=== PATIENT | male | born 1980 | race Asian ===

== ENCOUNTER 2017-02-14 00:27 | Emergency (ER) | payer MEDICAID ==
[~2017-02-14] VITALS: Ht 170.2 cm; Wt 82.0 kg
[2017-02-14 00:37] VITALS: Ht 170.2 cm; Wt 82.0 kg
[2017-02-14] MEDS ORDERED: KETOROLAC 60 MG INJ IM STA (02:04)
[2017-02-14 02:37] LABS: URINE BLOOD (Dip) POC 2+ (NEGATIVE)
--- NOTE | 2017-02-14 02:59 | RADRPT ---
PROCEDURE: X-ray right ribs CLINICAL INDICATION: Right rib pain, otherwise nonspecific. TECHNIQUE: 2 views right ribs COMPARISON: None FINDINGS: No acute fracture or dislocation. No evident pneumothorax. IMPRESSION: No acute fracture. RPTAT: [facility] Physician Amy Date Time Electronically viewed and signed by Mulugeta Wynne Physician on 02/14/2017 02:59 RS/
[2017-02-14] MEDS ORDERED: IBUP800T25 PO (03:10)
[2017-02-14] MEDS ORDERED: ALBU18HF INHALATION (03:32)
[2017-02-14 04:23] VITALS: BP 132/76; PULSE 56; RESP 16; TEMP 97.8
--- NOTE | 2017-02-14 06:45 | ERD ---
ER Documentation Chief Complaint Date/Time DATE: 02/14/17 TIME: 06:40 Chief Complaint C/O RT SIDED CHEST PAIN, RT BACK PAIN AND DIZZINESS SINCE 1999 HPI 36-year-old male complaining of right-sided chest pain since 8 PM yesterday evening. Patient states that he ate burgers for dinner, shortly after he had sudden onset of sharp, burning knifelike pain in the right side of the chest. The pain radiates to the right back. He is intermittent, worse with movement. Laying down flat makes pain better, sitting up straight or standing makes the pain worse. He had one episode of vomiting. Denies fever or chills. Denies shortness of breath. ROS All systems reviewed and are negative except as per history of present illness. Medications Home Meds Active Scripts Albuterol Sulfate* (Ventolin HFA*) 18 Gm Hfa.aer.ad, 2 PUFF INHALATION Q4H, #1 INHALER Prov:BELA SMITH. BEHAVIORAL HEALTH WORKER 02/14/17 Ibuprofen* (Motrin*) 800 Mg Tab, 800 MG PO Q6H Y for PAIN AND OR ELEVATED TEMP, #30 TAB Prov:BELA SMITH. BEHAVIORAL HEALTH WORKER 02/14/17 PMhx/Soc History of Surgery: No Anesthesia Reaction: No Hx Neurological Disorder: No Hx Respiratory Disorders: Yes (ASTHMA ) Hx Cardiac Disorders: No Hx Psychiatric Problems: No Hx Miscellaneous Medical Probl: No Hx Alcohol Use: No Hx Substance Use: No Hx Tobacco Use: Yes Smoking Status: Current every day smoker Physical Exam Vitals Vital Signs Date Time Temp Pulse Resp B/P Pulse Ox O2 Delivery O2 Flow Rate FiO2 02/14/17 04:23 97.8 56 16 132/76 97 Room Air 02/14/17 00:37 98.5 74 17 141/74 96 Physical Exam General impression: Well-developed, well-nourished. Alert, oriented, in no acute distress Head: Normocephalic, atraumatic. Eyes: PERRL, EOM normal. Sclerae are normal. Conjunctiva not injected. Neck: Supple, nontender. No lymphadenopathy. No nuchal rigidity. Respiration: Normal respiratory effort. Lungs clear to auscultate bilaterally. No wheezes, rales or rhonchi. Cardiovascular: Regular rate and rhythm. No murmurs or extra heart sounds. No friction rub. Right chest wall tender to palpation. Abdomen: Abdomen normal to inspection. Nontender. No masses or organomegaly. Bowel sounds normal. Back: Normal to inspection. No midline spine tenderness. No CVA tenderness. Extremities: Extremities normal to inspection, nontender. ROM normal. Neuro: Mental status normal, speech normal. [place] MATE grossly intact. Skin: Normal turgor. No rash or lesions. Psych: Normal mood and affect. Results 24 hrs Laboratory Tests Test 02/14/17 02:37 Bedside Urine pH (LAB) 5.5 Bedside Urine Protein (LAB) 3+ Bedside Urine Glucose (UA) Negative Bedside Urine Ketones (LAB) Negative Bedside Urine Blood 2+ Bedside Urine Nitrite (LAB) Negative Bedside Urine Leukocyte Esterase (L Negative Current Medications Medications (Trade) Dose Ordered Sig/Aide Route PRN Reason Start Time Stop Time Status Last Admin Dose Admin Ketorolac Tromethamine (Toradol) 60 mg ONCE STAT IM 02/14/17 02:04 02/14/17 02:06 DC 02/14/17 02:26 Procedures/MDM Well-appearing 36-year-old male complaining of right-sided chest pain 1 day. EKG: Normal sinus rhythm at 63 bpm, 1 PVC noted. Normal axis. No ST segment elevation or depression. No QT prolongation. X-ray of the right ribs was obtained, x-ray negative for fractures or dislocations. No sign of pneumonia or pneumothorax, no sign of enlarged aorta. I doubt PE or pericarditis. I suspect his pain is due to muscle strain. Patient appears well, stable for discharge and outpatient management. Medical decision making shared with patient and family. Education provided to patient and family. Patient and family expressed understanding of the plan. Medications on discharge: Ibuprofen. Follow-up: Primary care provider in 2-3 days or return to ED if worse. Departure Diagnosis: Primary Impression: Chest wall muscle strain Encounter type: initial encounter Qualified Code: S29.011A - Chest wall muscle strain, initial encounter Condition: Good Patient Instructions: Chest Wall Strain Referrals: [facility] YOU HAVE RECEIVED A MEDICAL SCREENING EXAM AND THE RESULTS INDICATE THAT YOU DO NOT HAVE A CONDITION THAT REQUIRES URGENT TREATMENT IN THE EMERGENCY DEPARTMENT. FURTHER EVALUATION AND TREATMENT OF YOUR CONDITION CAN WAIT UNTIL YOU ARE SEEN IN YOUR DOCTORS OFFICE WITHIN THE NEXT 1-2 DAYS. IT IS YOUR RESPONSIBILITY TO MAKE AN APPOINTMENT FOR FOLOW-UP CARE. IF YOU HAVE A PRIMARY DOCTOR --you should call your primary doctor and schedule an appointment IF YOU DO NOT HAVE A PRIMARY DOCTOR YOU CAN CALL OUR PHYSICIAN REFERRAL HOTLINE AT IF YOU CAN NOT AFFORD TO SEE A PHYSICIAN YOU CAN CHOSE FROM THE FOLLOWING [facility] [address] [facility] [address] [address] [facility] [address] [facility] [facility] [address] [facility]. [facility]. [address] Additional Instructions: Call your primary care doctor TOMORROW for an appointment during the next 1 WEEK.Tell the stenographer secretary that you were referred from this facility.See the doctor sooner or return here if your condition worsens before your appointment time. BELA SMITH NP Feb 14, 2017 06:45
== END 2017-02-14 04:23 | disposition home or self-care (01) ==
LOC: FTE 00:27
DX: S29.011A Strain of muscle and tendon of front wall of thorax, initial encounter (principal); J45.909 Unspecified asthma, uncomplicated; F17.210 Nicotine dependence, cigarettes, uncomplicated; R07.9 Chest pain, unspecified; X58.XXXA Exposure to other specified factors, initial encounter; Y92.9 Unspecified place or not applicable
CPT/HCPCS: 71100; 81003; 93005; 96372; J1885; Z7502

== ENCOUNTER 2017-06-09 22:22 | Emergency (ER) | payer MEDICAID ==
[~2017-06-09] VITALS: Ht 167.6 cm; Wt 81.0 kg
[~2017-06-09 22:22] MED LIST: ALBU18HF INHALATION; IBUP800T25 PO
[2017-06-09 22:28] VITALS: Ht 167.6 cm; Wt 81.0 kg
[2017-06-10] MEDS ORDERED: IBUPROFEN 600 MG TAB PO ONE
[2017-06-10] MEDS ORDERED: ACETAMINOPHEN 325 MG TAB PO ONE
[2017-06-10] MEDS ORDERED: ONDANSETRON 4 MG INJ IV STA (00:12)
[2017-06-10] MEDS ORDERED: SOD CHLORIDE 0.9% 1,000 ML IV ONE (00:30)
[2017-06-10] MEDS ORDERED: DIAZEPAM 5 MG/ML SYG IV ONE (00:30)
[2017-06-10] MEDS ORDERED: morphine 2 MG INJ IV ONE (00:30)
--- NOTE | 2017-06-10 00:46 | ERD ---
ER Documentation Chief Complaint Date/Time DATE: 06/10/17 TIME: 00:43 Chief Complaint sp spider bite right knee, small rash, cough x 5 days, headache HPI 36-year-old male presents here in emergency department for multiple complaints. Patient is complaining of multiple insect bites and lower extremities, is worried about an prior bite. Patient started to have cramps all over the body that started this afternoon, it is on and off. Describes the pain as cramping pain, 8/10 scale, not better or worse with anything. Patient also has been having cough for 5 days. Patient has been having dry cough, does not cough any phlegm or blood. Patient denies shortness breath or wheezing. Patient has been having fever on-and-off. Patient does not have any sore throat or ear pain. Patient did not take any medications to help with symptoms. ROS All systems reviewed and are negative except as per history of present illness. Medications Home Meds Active Scripts Albuterol Sulfate* (Proair HFA*) 8.5 Gm Hfa.aer.ad, 2 PUFF INH Q4H Y for WHEEZING AND SOB, #1 INHALER Prov:LÓPEZ JACOBSON NP 06/10/17 Azithromycin* (Zithromax*) 250 Mg Tablet, 250 MG PO .ZPACK DIRECTED, #6 TAB TAKE 500 MG (2 TABS) THE FIRST DAY THEN 250 MG (1 TAB) DAYS 2-5 Prov:LÓPEZ JACOBSON NP 06/10/17 Cetirizine Hcl* (Zyrtec*) 10 Mg Capsule, 10 MG PO DAILY, #30 TAB.CHEW Prov:LÓPEZ JACOBSON NP 06/10/17 Ibuprofen* (Motrin*) 600 Mg Tab, 600 MG PO Q6H Y for PAIN AND OR ELEVATED TEMP, #30 TAB Prov:LÓPEZ JACOBSON NP 06/10/17 Cjrimlolrzu-A-Vnkhvozcqc Hb* (Guaifenesin* DM Syrup) 120 Ml Syrup, 10 ML PO Q4H Y for COUGH, #120 ML Prov:LÓPEZ JACOBSON NP 06/10/17 Diazepam* (Valium*) 5 Mg Tablet, 5 MG PO Q8 Y for MUSCLE SPASMS, #15 TAB Prov:LÓPEZ JACOBSON MICHEL BertoCaden CLERICAL ADJUDICATOR 06/10/17 Tramadol HCl (Tramadol HCl) 50 Mg Tablet, 50 MG PO Q6, #20 TAB Prov:LÓPEZ JACOBSONCdaen CLERICAL ADJUDICATOR 06/10/17 Albuterol Sulfate* (Ventolin HFA*) 18 Gm Hfa.aer.ad, 2 PUFF INHALATION Q4H, #1 INHALER Prov:BELA SMITH. CLERICAL ADJUDICATOR 02/14/17 Ibuprofen* (Motrin*) 800 Mg Tab, 800 MG PO Q6H Y for PAIN AND OR ELEVATED TEMP, #30 TAB Prov:BELA SMITH. CLERICAL ADJUDICATOR 02/14/17 Allergies Allergies: Coded Allergies: codeine (Verified Allergy, Unknown, 06/09/17) PMhx/Soc Medical and Surgical Hx: pt denies Surgical Hx History of Surgery: No Anesthesia Reaction: No Hx Neurological Disorder: No Hx Respiratory Disorders: Yes (ASTHMA ) Hx Cardiac Disorders: No Hx Psychiatric Problems: No Hx Miscellaneous Medical Probl: No Hx Substance Use: Yes (Marijuana) Hx Tobacco Use: Yes (1 pack a day) Smoking Status: Current every day smoker FmHx Family History: No coronary disease, No diabetes, No other Physical Exam Vitals Vital Signs Date Time Temp Pulse Resp B/P Pulse Ox O2 Delivery O2 Flow Rate FiO2 06/10/17 05:45 65 06/09/17 22:28 101.3 117 20 128/90 96 Physical Exam GENERAL: The patient is well developed and appropriate for usual state of health, in no apparent distress. CHEST: Clear to auscultation bilaterally. There are no rales, wheezes or rhonchi. HEART: Regular rate and rhythm. No murmurs, clicks, rubs or gallops. No S3 or S4. ABDOMEN: Soft, nontender and nondistended. Good bowel sounds. No rebound or guarding. No gross peritonitis. No gross organomegaly or masses. No Moscoso sign or McBurney point tenderness. BACK: No midline or flank tenderness. EXTREMITIES: Equal pulses bilaterally. There is no peripheral clubbing, cyanosis or edema. No focal swelling or erythema. Full range of motion. Grossly neurovascularly intact. NEURO: Alert and oriented. Cranial nerves 2-12 intact. Motor strength in all 4 extremities with 5/5 strength. Sensation grossly intact. Normal speech and gait. SKIN: There is no apparent rash or petechia. The skin is warm and dry. HEMATOLOGIC AND LYMPHATIC: There is no evidence of excessive bruising or lymphedema. No gross cervical, axillary, or inguinal lymphadenopathy. Result Diagram: 06/10/170 06/10/1729 Results 24 hrs Laboratory Tests Test 06/10/17 00:30 White Blood Count 12.710^3/ul Red Blood Count 5.9610^6/ul Hemoglobin 18.1g/dl Hematocrit 53.4% Mean Corpuscular Volume 89.6fl Mean Corpuscular Hemoglobin 30.4pg Mean Corpuscular Hemoglobin Concent 33.9g/dl Red Cell Distribution Width 13.2% Platelet Count 93567^3/UL Mean Platelet Volume 12.1fl Neutrophils % 64.9% Lymphocytes % 22.1% Monocytes % 11.5% Eosinophils % 0.3% Basophils % 0.6% Nucleated Red Blood Cells % 0.0/100WBC Neutrophils # (Manual) 810^3/ul Lymphocytes # 2.810^3/ul Monocytes # 1.510^3/ul Eosinophils # 0.010^3/ul Basophils # 0.110^3/ul Nucleated Red Blood Cells # 0.010^3/ul Erythrocyte Sedimentation Rate 25mm/Hr Sodium Level 141mmol/L Potassium Level 4.5mmol/L Chloride Level 97mmol/L Carbon Dioxide Level 29mmol/L Anion Gap 20 Blood Urea Nitrogen 23mg/dl Creatinine 1.31mg/dl Glucose Level 102mg/dl Calcium Level 9.5mg/dl Magnesium Level 2.4mg/dl Total Bilirubin 0.5mg/dl Direct Bilirubin 0.00mg/dl Indirect Bilirubin 0.5mg/dl Aspartate Amino Transf (AST/SGOT) 79IU/L Alanine Aminotransferase (ALT/SGPT) 173IU/L Alkaline Phosphatase 106IU/L Creatine Kinase 582IU/L C-Reactive Protein 3.8mg/dl Total Protein 8.9g/dl Albumin 3.9g/dl Globulin 5.00g/dl Albumin/Globulin Ratio 0.78 Current Medications Medications (Trade) Dose Ordered Sig/Aide Route PRN Reason Start Time Stop Time Status Last Admin Dose Admin Ibuprofen (Motrin) 600 mg ONCE ONCE PO 06/10/17 00:00 06/10/17 00:01 DC 06/10/17 00:44 Acetaminophen 650 mg 650 mg ONCE ONCE PO 06/10/17 00:00 06/10/17 00:01 DC 06/10/17 00:44 Sodium Chloride (NS) 1,000 ml @ 1,000 mls/hr Q1H ONCE IV 06/10/17 00:30 06/10/17 01:29 DC 06/10/17 00:44 Diazepam (Valium) 5 mg ONCE ONCE IV 06/10/17 00:30 06/10/17 00:31 DC 06/10/17 00:43 Morphine Sulfate (morphine) 2 mg ONCE ONCE IV 06/10/17 00:30 06/10/17 00:31 DC 06/10/17 00:44 Ondansetron HCl (Zofran Inj) 4 mg ONCE STAT IV 06/10/17 00:12 06/10/17 00:16 DC 06/10/17 00:44 Patient was given medicines for fever control here in the emergency department. After treatment, patient temperature improved and lower. Patient appears well and is hemodynamically stable. Patient was given medication for pain here in emergency department, after treatment, patient verbalized feeling much better. Patient's pain is improved.Patient was given Zofran here in the emergency department. After treatment, patient was able to tolerate po fluids here in the emergency department without any vomiting. There is no signs and symptoms of dehydration. Normal saline IV bolus was given here in emergency department for rehydration, patient tolerated IV fluids. EKG was done, read by me and is and is tachycardia at 102 bpm, normal axis, there is no ST changes or changes in the EKG that indicates any cardiac emergencies at this time. Patient's EKG was also reviewed by Dr. Carr. Impression: no acute findings on EKG PROCEDURE: Chest. CLINICAL INDICATION: Cough. TECHNIQUE: Single frontal view of the chest was obtained. COMPARISON: None. FINDINGS: The cardiac silhouette is within normal limits. The aortic arch is unremarkable. There is no focal consolidation, vascular congestion or pleural effusion. There is no pneumothorax. IMPRESSION: No evidence for active cardiopulmonary disease. .Garo Duarte MD, MD Date Time Electronically viewed and signed by .Garo Duarte MD, MD on 06/10/2017 01:05 .T/ CC: LÓPEZ JACOBSON CLERICAL ADJUDICATOR Procedures/MDM Medical Decision Making: Patient symptoms are most likely consistent with acute bronchitis most likely is caused by atypical infection. There is low suspicion for Pneumonia at this time since patients lungs sounds are clear, patient O2 saturation is normal and patient doesnt show any respiratory distress. Patients chest xray doesnt show infiltrates or any other cardiopulmonary emergencies at this time. There is low suspicion for other cardiopulmonary emergencies at this time such as CHF, Pulmonary Embolism, Pneumothorax, Aortic Aneurysm or any other cardiopulmonary emergencies at this time. There is low suspicion for sepsis. Patient appears well and is hemodynamically stable. Fever is controlled with medicines. Patients muscle spasms all over the body and cramps most likely is consistent with possible black insect bite. This most likely discussed elevated total CK, and causing the muscle spasms. Other electrolytes are normal. I discussed this case with my attending physician, Dr. Carr which agreed with the treatment plan giving patient symptomatic management. Disposition: Home. Condition: Stable Prescriptions: Tramadol, Valium, azithromycin guaifenesin DM Zyrtec Ibuprofen Instructions: Patient is advised to take medications as prescribed. Patient is advised to rest. Patient advised to increase fluid intake, do humidifier at home and if possible, do salt water gargles. Patient is advised that if symptoms are worse, shortness of breath, uncontrolled fever, stridor, vomiting, worst signs and symptoms to return to emergency department immediately. Otherwise, patient is advised to follow up with primary doctor in 5-7 days. Departure Diagnosis: Primary Impression: Poisoning, black, spider bite Encounter type: initial encounter Injury intent: accidental or unintentional Qualified Code: T63.311A - Poisoning, black, spider bite, accidental or unintentional, initial encounter Additional Impression: Acute bronchitis Bronchitis organism: unspecified organism Qualified Code: J20.9 - Acute bronchitis, unspecified organism Condition: Stable Patient Instructions: Black Spider Bite, Bronchitis, Antiobiotic Treatment (Adult) Additional Instructions: Patient is advised to take medications as prescribed. Patient is advised to rest. Patient advised to increase fluid intake, do humidifier at home and if possible, do salt water gargles. Patient is advised that if symptoms are worse, shortness of breath, uncontrolled fever, stridor, vomiting, worst signs and symptoms to return to emergency department immediately. Otherwise, patient is advised to follow up with primary doctor in 5-7 days. LÓPEZ JACOBSON NP Jun 10, 2017 00:45
[2017-06-10 00:49] LABS: BASOPHIL # 0.1 10^3/ul (0.0-0.1); BASOPHILS % 0.6 % (0.0-2.0); EOSINOPHILS % 0.3 % (0.0-7.0); HEMATOCRIT 53.4 % (42.0-52.0); HEMOGLOBIN 18.1 g/dl (14.0-18.0); LYMPHOCYTES # 2.8 10^3/ul (0.8-2.9); LYMPHOCYTES % 22.1 % (15.0-51.0); MEAN CORPUSCULAR HEMOGLOBIN 30.4 pg (29.0-33.0); MEAN CORPUSCULAR HGB CONC 33.9 g/dl (32.0-37.0); MEAN CORPUSCULAR VOLUME 89.6 fl (82.0-101.0); MEAN PLATELET VOLUME 12.1 fl (7.4-10.4); MONOCYTE # 1.5 10^3/ul (0.3-0.9); MONOCYTES % 11.5 % (0.0-11.0); NEUTROPHILS % 64.9 % (39.0-77.0); PLATELET COUNT 329 10^3/UL (140-415); RED BLOOD COUNT 5.96 10^6/ul (4.70-6.10); RED CELL DISTRIBUTION WIDTH 13.2 % (11.5-14.5); WHITE BLOOD COUNT 12.7 10^3/ul (4.8-10.8)
--- NOTE | 2017-06-10 01:05 | RADRPT ---
PROCEDURE: Chest. CLINICAL INDICATION: Cough. TECHNIQUE: Single frontal view of the chest was obtained. COMPARISON: None. FINDINGS: The cardiac silhouette is within normal limits. The aortic arch is unremarkable. There is no focal consolidation, vascular congestion or pleural effusion. There is no pneumothorax. IMPRESSION: No evidence for active cardiopulmonary disease. .Garo Duarte MD, MD Date Time Electronically viewed and signed by .Garo Duarte MD, on 06/10/2017 01:05 .T/
[2017-06-10 01:18] LABS: ALBUMIN 3.9 g/dl (3.3-4.9); ALBUMIN/GLOBULIN RATIO 0.78; BILIRUBIN,INDIRECT 0.5 mg/dl (0-1.1); BILIRUBIN,TOTAL 0.5 mg/dl (0.2-1.3); CALCIUM 9.5 mg/dl (8.4-10.2); CREATININE 1.31 mg/dl (0.61-1.24); POTASSIUM 4.5 mmol/L (3.5-5.1); TOTAL PROTEIN 8.9 g/dl (6.1-8.1)
[2017-06-10 02:01] LABS: C-REACTIVE PROTEIN 3.8 mg/dl (0.0-0.9)
[2017-06-10] MEDS ORDERED: GUAI120S26 PO (03:52)
[2017-06-10] MEDS ORDERED: TRAM50TA2 PO (03:52)
[2017-06-10] MEDS ORDERED: DIAZ-90 PO (03:52)
[2017-06-10] MEDS ORDERED: IBUP-1542 PO (03:53)
[2017-06-10] MEDS ORDERED: AZIT250T94 PO (03:53)
[2017-06-10] MEDS ORDERED: CETI10CA PO (03:53)
[2017-06-10] MEDS ORDERED: ALBU8.5H3 INH (05:43)
[2017-06-10 05:45] VITALS: PULSE 65
== END 2017-06-10 05:55 | disposition home or self-care (01) ==
LOC: FTE 22:22
DX: T63.311A Toxic effect of venom of black widow spider, accidental (unintentional), initial encounter (principal); J20.9 Acute bronchitis, unspecified; J45.909 Unspecified asthma, uncomplicated; F17.210 Nicotine dependence, cigarettes, uncomplicated
CPT/HCPCS: 71010; 80053; 82550; 83735; 85025; 85651; 86140; 93005; 96374; 96375; J2270; J2405; J3360; J7030; Z7502; Z7610

== ENCOUNTER 2017-09-07 20:43 | Emergency (ER) | payer MEDICAID ==
[~2017-09-07] VITALS: Ht 167.6 cm; Wt 79.2 kg
[~2017-09-07 20:43] MED LIST changes: +ALBU8.5H3 INH; +AZIT250T94 PO; +CETI10CA PO; +DIAZ-90 PO; +GUAI120S26 PO; +IBUP-1542 PO; +TRAM50TA2 PO
[2017-09-07 20:47] VITALS: Ht 167.6 cm; Wt 79.2 kg
--- NOTE | 2017-09-08 00:02 | ERD ---
ER Documentation Chief Complaint Chief Complaint cough x 4 days HPI 6-year-old male presents to emergency department for complaints of cough on and off wheezing for 4 days. Patient has history of asthma, has been taking albuterol at home, last dose was earlier today. Patient has been having dry cough, does not cough up any phlegm or blood. Patient does not have any sick contacts. Patient denies any fever or chills. ROS All systems reviewed and are negative except as per history of present illness. Medications Home Meds Active Scripts Albuterol Sulfate* (Proair HFA*) 8.5 Gm Hfa.aer.ad, 2 PUFF INH Q4H Y for WHEEZING AND SOB, #1 INHALER Prov:LÓPEZ JACOBSON NP 06/10/17 Azithromycin* (Zithromax*) 250 Mg Tablet, 250 MG PO .ZPACK DIRECTED, #6 TAB TAKE 500 MG (2 TABS) THE FIRST DAY THEN 250 MG (1 TAB) DAYS 2-5 Prov:LÓPEZ JACOBSON NP 06/10/17 Cetirizine Hcl* (Zyrtec*) 10 Mg Capsule, 10 MG PO DAILY, #30 TAB.CHEW Prov:LÓPEZ JACOBSON NP 06/10/17 Ibuprofen* (Motrin*) 600 Mg Tab, 600 MG PO Q6H Y for PAIN AND OR ELEVATED TEMP, #30 TAB Prov:LÓPEZ JACOBSON NP 06/10/17 Guctmgtvqjp-D-Jmgmoasnrp Hb* (Guaifenesin* DM Syrup) 120 Ml Syrup, 10 ML PO Q4H Y for COUGH, #120 ML Prov:LÓPEZ JACOBSON NP 06/10/17 Diazepam* (Valium*) 5 Mg Tablet, 5 MG PO Q8 Y for MUSCLE SPASMS, #15 TAB Prov:LÓPEZ JACOBSON NP 06/10/17 Tramadol HCl (Tramadol HCl) 50 Mg Tablet, 50 MG PO Q6, #20 TAB Prov:LÓPEZ JACOBSON NP 06/10/17 Albuterol Sulfate* (Ventolin HFA*) 18 Gm Hfa.aer.ad, 2 PUFF INHALATION Q4H, #1 INHALER Prov:BELA SMITH. DRILLING FOREMAN 02/14/17 Ibuprofen* (Motrin*) 800 Mg Tab, 800 MG PO Q6H Y for PAIN AND OR ELEVATED TEMP, #30 TAB Prov:BELA SMITH. DRILLING FOREMAN 02/14/17 Allergies Allergies: Coded Allergies: codeine (Verified Allergy, Unknown, 06/09/17) PMhx/Soc History of Surgery: No Anesthesia Reaction: No Hx Neurological Disorder: No Hx Respiratory Disorders: Yes (ASTHMA ) Hx Cardiac Disorders: No Hx Psychiatric Problems: No Hx Miscellaneous Medical Probl: No (HEPATITIS C) Hx Alcohol Use: Yes Hx Substance Use: Yes (Marijuana) Hx Tobacco Use: Yes (1 pack a day) Smoking Status: Current every day smoker FmHx Family History: No coronary disease, No diabetes, No other Physical Exam Vitals Vital Signs Date Time Temp Pulse Resp B/P Pulse Ox O2 Delivery O2 Flow Rate FiO2 09/08/17 00:07 93 09/07/17 20:47 98.7 112 20 133/83 98 Physical Exam GENERAL: The patient is well developed and appropriate for usual state of health, in no apparent distress. CHEST: Clear to auscultation bilaterally. There are no rales, wheezes or rhonchi. HEART: Regular rate and rhythm. No murmurs, clicks, rubs or gallops. No S3 or S4. ABDOMEN: Soft, nontender and nondistended. Good bowel sounds. No rebound or guarding. No gross peritonitis. No gross organomegaly or masses. No Moscoso sign or McBurney point tenderness. BACK: No midline or flank tenderness. EXTREMITIES: Equal pulses bilaterally. There is no peripheral clubbing, cyanosis or edema. No focal swelling or erythema. Full range of motion. Grossly neurovascularly intact. NEURO: Alert and oriented. Cranial nerves 2-12 intact. Motor strength in all 4 extremities with 5/5 strength. Sensation grossly intact. Normal speech and gait. SKIN: There is no apparent rash or petechia. The skin is warm and dry. HEMATOLOGIC AND LYMPHATIC: There is no evidence of excessive bruising or lymphedema. No gross cervical, axillary, or inguinal lymphadenopathy. Results 24 hrs EKG was done, read by me and is normal sinus rhythm at a rate of 93, normal axis , there is no ST changes or changes in the EKG that indicates any cardiac emergencies at this time. Patient's EKG was also reviewed by Dr. Vivas. Impression: no acute findings on EKG. PROCEDURE: XR Chest. CLINICAL INDICATION: Cough. Wheezing TECHNIQUE: Portable AP semi erect views of the chest were obtained, 2 images sent to the PACS for review. COMPARISON: 06/10/2017 FINDINGS: The cardiomediastinal silhouette is within normal limits. The lungs are clear. There is no evidence for pleural effusion, pneumothorax or pulmonary vascular congestion. The osseous structures are intact with no evidence for acute abnormality. RPTAT:HJJR IMPRESSION: No evidence for acute intrathoracic pathology. Physician Elaine Date Time Electronically viewed and signed by Wander Nash Physician on 09/08/2017 00:37 JR/ CC: LÓPEZ JACOBSON DRILLING FOREMAN Procedures/MDM Medical Decision Making: Patient symptoms are most likely consistent with acute bronchitis, which viral in origin. There is low suspicion for Pneumonia at this time since patients lungs sounds are clear, patient O2 saturation is normal and patient doesnt show any respiratory distress. Patients chest xray doesnt show infiltrates or any other cardiopulmonary emergencies at this time. There is low suspicion for other cardiopulmonary emergencies at this time such as CHF, Pulmonary Embolism, Pneumothorax, Aortic Aneurysm or any other cardiopulmonary emergencies at this time. There is low suspicion for sepsis. Patient appears well and is hemodynamically stable. Fever is controlled with medicines. Disposition: Home. Condition: Stable Prescriptions: Albuterol, guaifenesin DM prednisone ibuprofen Zyrtec Instructions: Patient is advised to take medications as prescribed. Patient is advised to rest. Patient advised to increase fluid intake, do humidifier at home and if possible, do salt water gargles. Patient is advised that if symptoms are worse, shortness of breath, uncontrolled fever, stridor, vomiting, worst signs and symptoms to return to emergency department immediately. Otherwise, patient is advised to follow up with primary doctor in 5-7 days. Disclaimer: Inadvertent spelling and grammatical errors are likely due to EHR/ dictation software use and do not reflect on the overall quality of patient care. Also, please note that the electronic time recorded on this note does not necessarily reflect the actual time of the patient encounter. Departure Diagnosis: Primary Impression: Acute bronchitis Bronchitis organism: unspecified organism Qualified Code: J20.9 - Acute bronchitis, unspecified organism Condition: Stable Patient Instructions: Bronchitis With Wheezing (Adult) Additional Instructions: Patient is advised to take medications as prescribed. Patient is advised to rest. Patient advised to increase fluid intake, do humidifier at home and if possible, do salt water gargles. Patient is advised that if symptoms are worse, shortness of breath, uncontrolled fever, stridor, vomiting, worst signs and symptoms to return to emergency department immediately. Otherwise, patient is advised to follow up with primary doctor in 5-7 days. LÓPEZ JACOBSON NP Sep 08, 2017 00:02
[2017-09-08 00:07] VITALS: PULSE 93
--- NOTE | 2017-09-08 00:37 | RADRPT ---
PROCEDURE: XR Chest. CLINICAL INDICATION: Cough. Wheezing TECHNIQUE: Portable AP semi erect views of the chest were obtained, 2 images sent to the PACS for review. COMPARISON: 06/10/2017 FINDINGS: The cardiomediastinal silhouette is within normal limits. The lungs are clear. There is no evidenc e for pleural effusion, pneumothorax or pulmonary vascular congestion. The osseous structures are i ntact with no evidence for acute abnormality. RPTAT:HJJR IMPRESSION: No evidence for acute intrathoracic pathology. Physician Elaine Date Time Electronically viewed and signed by Physician Elaine on 09/08/2017 00:37 JR/
[2017-09-08] MEDS ORDERED: CETI10CA PO (00:44)
[2017-09-08] MEDS ORDERED: IBUP-1542 PO (00:44)
[2017-09-08] MEDS ORDERED: PRED50TA PO (00:44)
[2017-09-08] MEDS ORDERED: ALBU8.5H3 INH (00:44)
[2017-09-08] MEDS ORDERED: GUAI120S26 PO (00:44)
== END 2017-09-08 01:08 | disposition home or self-care (01) ==
LOC: FTE 20:43
DX: J20.9 Acute bronchitis, unspecified (principal); J45.909 Unspecified asthma, uncomplicated; R00.2 Palpitations
CPT/HCPCS: 71010; 93005; Z7502

== ENCOUNTER 2017-10-13 01:30 | Emergency (ER) | payer MEDICAID ==
[~2017-10-13] VITALS: Ht 170.2 cm; Wt 79.1 kg
[~2017-10-13 01:30] MED LIST changes: +PRED50TA PO
[2017-10-13 01:35] VITALS: Ht 170.2 cm; Wt 79.1 kg
[2017-10-13] MEDS ORDERED: IBUP-1542 PO (03:23)
--- NOTE | 2017-10-13 03:32 | ERD ---
ER Documentation Chief Complaint Chief Complaint pain both feet x 2 weeks. denies injury HPI 37-year-old male complaining of bilateral feet pain 2 weeks. Patient stated the pain is located at the arch of the feet, worse when he is walking. Pain is also worse when he first get up after prolonged sitting or lying. Denies any injuries. ROS All systems reviewed and are negative except as per history of present illness. Medications Home Meds Active Scripts Ibuprofen* (Motrin*) 600 Mg Tab, 600 MG PO Q6H Y for PAIN AND OR ELEVATED TEMP, #30 TAB Prov:BELA SMITH NP 10/13/17 Ibuprofen* (Motrin*) 600 Mg Tab, 600 MG PO Q6H Y for PAIN AND OR ELEVATED TEMP, #30 TAB Prov:LÓPEZ JACOBSON NP 09/08/17 Nzahtdiucrt-L-Cwegppdnfg Hb* (Guaifenesin* DM Syrup) 120 Ml Syrup, 5 ML PO Q4H Y for COUGH, #120 ML Prov:LÓPEZ JACOBSON NP 09/08/17 Cetirizine Hcl* (Zyrtec*) 10 Mg Capsule, 10 MG PO DAILY, #30 TAB.CHEW Prov:LÓPEZ JACOBSON NP 09/08/17 Prednisone* (Prednisone*) 50 Mg Tablet, 50 MG PO DAILY for 5 Days, TAB Prov:LÓPEZ JACOBSON NP 09/08/17 Albuterol Sulfate* (Proair HFA*) 8.5 Gm Hfa.aer.ad, 2 PUFF INH Q4H Y for WHEEZING AND SOB, #1 INHALER Prov:LÓPEZ JACOBSON NP 09/08/17 Albuterol Sulfate* (Proair HFA*) 8.5 Gm Hfa.aer.ad, 2 PUFF INH Q4H Y for WHEEZING AND SOB, #1 INHALER Prov:LÓPEZ JACOBSON NP 06/10/17 Azithromycin* (Zithromax*) 250 Mg Tablet, 250 MG PO .ZPACK DIRECTED, #6 TAB TAKE 500 MG (2 TABS) THE FIRST DAY THEN 250 MG (1 TAB) DAYS 2-5 Prov:LÓPEZ JACOBSON NP 06/10/17 Cetirizine Hcl* (Zyrtec*) 10 Mg Capsule, 10 MG PO DAILY, #30 TAB.CHEW Prov:LÓPEZ JACOBSON NP 06/10/17 Ibuprofen* (Motrin*) 600 Mg Tab, 600 MG PO Q6H Y for PAIN AND OR ELEVATED TEMP, #30 TAB Prov:LÓPEZ JACOBSON NP 06/10/17 Wecqnqzeopc-D-Eepexvgolg Hb* (Guaifenesin* DM Syrup) 120 Ml Syrup, 10 ML PO Q4H Y for COUGH, #120 ML Prov:LÓPEZ JACOBSON NP 06/10/17 Diazepam* (Valium*) 5 Mg Tablet, 5 MG PO Q8 Y for MUSCLE SPASMS, #15 TAB Prov:LÓPEZ JACOBSON NP 06/10/17 Tramadol HCl (Tramadol HCl) 50 Mg Tablet, 50 MG PO Q6, #20 TAB Prov:LÓPEZ JACOBSON NP 06/10/17 Albuterol Sulfate* (Ventolin HFA*) 18 Gm Hfa.aer.ad, 2 PUFF INHALATION Q4H, #1 INHALER Prov:BELA SMITH NP 02/14/17 Ibuprofen* (Motrin*) 800 Mg Tab, 800 MG PO Q6H Y for PAIN AND OR ELEVATED TEMP, #30 TAB Prov:BELA SMITH [place] [employer] 02/14/17 Allergies Allergies: Coded Allergies: codeine (Verified Allergy, Unknown, 10/13/17) PMhx/Soc Medical and Surgical Hx: pt denies Surgical Hx History of Surgery: Yes (knee sx) Anesthesia Reaction: No Hx Neurological Disorder: No Hx Respiratory Disorders: Yes (ASTHMA ) Hx Cardiac Disorders: No Hx Psychiatric Problems: No Hx Miscellaneous Medical Probl: No (HEPATITIS C) Hx Alcohol Use: Yes Hx Substance Use: Yes (Marijuana) Hx Tobacco Use: Yes (1 pack a day) Smoking Status: Current every day smoker Physical Exam Vitals Vital Signs Date Time Temp Pulse Resp B/P Pulse Ox O2 Delivery O2 Flow Rate FiO2 10/13/17 01:35 98.2 94 20 119/68 100 Physical Exam General: Well-developed, well-nourished, conscious and coherent, in no distress Skin: Warm and dry without rash, good texture and turgor Head: Normocephalic without evidence of trauma Eyes: Sclera and conjunctivae normal; pupils equal, round, and reactive to light; extraocular movements are intact Chest: Normal AP diameter. Good expansion without retractions. Nontender. Lungs are clear to auscultate bilaterally with good tidal volume Heart: Regular rate and rhythm. No murmur, rub, or gallops heard Extremities: Bilateral feet slightly tender at the plantar arch. Full range of motion. Good strength bilaterally. No clubbing, cyanosis, or edema. Peripheral pulses are intact. Sensation intact Neuro: Alert and oriented 4, GCS 15. Cranial nerves grossly intact. Motor and sensory exams nonfocal. Moves all extremities. Speech clear. Gait normal Procedures/MDM Well-appearing 37-year-old male present ED with bilateral feet pain 2 weeks. Patient has history of findings are consistent with plantar fasciitis. I doubt fractures, dislocations, or other acute etiology. Patient advised to obtain a orthotic arch support to help ease the pain, and stretch his plantar fascia I by using a tennis ball at home. Patient appears well, stable for discharge and outpatient management. Medical decision making shared with patient and family. Education provided to patient and family. Patient and family expressed understanding of the plan. Medications on discharge: Ibuprofen. Follow-up: Primary care provider in 2-3 days or return to ED if worse. Disclaimer: Inadvertent spelling and grammatical errors are likely due to EHR/ dictation software use and do not reflect on the overall quality of patient care. Also, please note that the electronic time recorded on this note does not necessarily reflect the actual time of the patient encounter. Departure Diagnosis: Primary Impression: Plantar fasciitis, bilateral Condition: Stable Patient Instructions: Treating Plantar Fasciitis, Plantar Fasciitis Referrals: COMMUNITY CLINICS YOU HAVE RECEIVED A MEDICAL SCREENING EXAM AND THE RESULTS INDICATE THAT YOU DO NOT HAVE A CONDITION THAT REQUIRES URGENT TREATMENT IN THE EMERGENCY DEPARTMENT. FURTHER EVALUATION AND TREATMENT OF YOUR CONDITION CAN WAIT UNTIL YOU ARE SEEN IN YOUR DOCTORS OFFICE WITHIN THE NEXT 1-2 DAYS. IT IS YOUR RESPONSIBILITY TO MAKE AN APPOINTMENT FOR FOLOW-UP CARE. IF YOU HAVE A PRIMARY DOCTOR --you should call your primary doctor and schedule an appointment IF YOU DO NOT HAVE A PRIMARY DOCTOR YOU CAN CALL OUR PHYSICIAN REFERRAL HOTLINE AT IF YOU CAN NOT AFFORD TO SEE A PHYSICIAN YOU CAN CHOSE FROM THE FOLLOWING [facility] [address] [facility]. [facility] [address] [facility]. [facility] [phone] [address] [facility]. [facility] [address] [facility]. [facility] [phone] [address] [facility]. [facility] [address] Additional Instructions: Call your primary care doctor TOMORROW for an appointment during the next 1 WEEK.Tell the secretary bookkeeper that you were referred from this facility.See the doctor sooner or return here if your condition worsens before your appointment time. BELA SMITH NP Oct 13, 2017 03:32
== END 2017-10-13 03:33 | disposition home or self-care (01) ==
LOC: FTE 01:30
DX: M72.2 Plantar fascial fibromatosis (principal); J45.909 Unspecified asthma, uncomplicated; F17.210 Nicotine dependence, cigarettes, uncomplicated
CPT/HCPCS: 99283

== ENCOUNTER 2017-10-16 20:25 | Emergency (ER) | END 2017-10-17 06:10 | disposition home or self-care (01) ==

== ENCOUNTER 2017-10-24 22:05 | Emergency (ER) | END 2017-10-25 01:39 | disposition home or self-care (01) ==

== ENCOUNTER 2017-11-06 01:05 | Emergency (ER) | END 2017-11-06 05:23 | disposition home or self-care (01) ==

== ENCOUNTER 2018-01-25 18:21 | Emergency (ER) | END 2018-01-25 20:00 | disposition home or self-care (01) ==